=== PATIENT | male | born 1955 | race American Indian/Alaskan Native ===

== ENCOUNTER 2019-10-30 10:26 | Day surgery (SDC) | payer OTHER ==
[2019-10-30] MEDS ORDERED: ceFAZolin/STERILE WATER 2 GM/20 ML SYRINGE IV NR (12:00)
[2019-10-30] MEDS ORDERED: HEPARIN 5,000 UNIT/1 ML VIAL SUB-Q NR (12:00)
[2019-10-30] MEDS ORDERED: fentaNYL 100 MCG/2 ML INJ IV PRN (12:06)
--- NOTE | 2019-10-30 12:06 | Anesthesia Consultation ---
Anesthesia Consult and Med Hx Date of service: 10/30/19 - Airway Anesthetic Teeth Evaluation: Partials ROM Head & Neck: Inadequate (hx cervical fusion) Mental/Hyoid Distance: Adequate Mallampati Class: Class III Intubation Access Assessment: Possibly Difficult - Pulmonary Exam CTA: Yes - Cardiac Exam Cardiac Exam: RRR - Pre-Operative Health Status ASA Pre-Surgery Classification: ASA2 Proposed Anesthetic Plan: General - Pulmonary Hx Smoking: Yes (QUIT 30 YEARS AGO) Hx Respiratory Symptoms: No - Cardiovascular System Hx Hypertension: Yes Hx Heart Attack/AMI: No - Central Nervous System CVA: No Hx Psychiatric Problems: Yes (depression) - Gastrointestinal Hx Gastroesophageal Reflux Disease: No - Endocrine Hx Renal Disease: No Hx Liver Disease: No Hx Non-Insulin Dependent Diabetes: Yes Hx Thyroid Disease: No - Other Systems Hx Obesity: Yes - Additional Comments Anesthesia Medical History Comments: No hx anesthetic complications.
--- NOTE | 2019-10-30 12:06 | Anesthesia Day of Surgery ---
Anesthesia Day of Surgery - Day of Surgery Patient Examined: Yes Patient H&P Reviewed: Yes Patient is NPO: Yes
[2019-10-30] MEDS ORDERED: LACTATED RINGERS 1,000 ML IV SCH (13:00)
[2019-10-30] MEDS ORDERED: CELECOXIB 200 MG CAP PO NR (13:00)
[2019-10-30] MEDS ORDERED: MIDAZOLAM 2 MG/2 ML INJ IV NR (13:00)
[2019-10-30] MEDS ORDERED: GABAPENTIN 300 MG CAP PO NR (13:00)
[2019-10-30] MEDS ORDERED: LIDOCAINE MPF (2%) 20 MG/1 ML VIAL 5 ML ONE (13:58)
[2019-10-30] MEDS ORDERED: ROCURONIUM 50 MG/5 ML INJ IV ONE (13:58)
[2019-10-30] MEDS ORDERED: PROPOFOL 200 MG/20 ML VIAL IV ONE (13:59)
[2019-10-30] MEDS ORDERED: fentaNYL 100 MCG/2 ML INJ ONE (13:59)
[2019-10-30] MEDS ORDERED: dexAMETHasone 20 MG/5 ML VIAL ONE (14:00)
[2019-10-30] MEDS ORDERED: ONDANSETRON 4 MG/2 ML INJ ONE (14:00)
[2019-10-30] MEDS ORDERED: BUPIVACAINE-EPINEPHRINE/PF 0.5%-1:200,000 (30 ML) VIAL INFILTRATI ONE ×3 (14:37→15:17)
[2019-10-30] MEDS ORDERED: fentaNYL 250 MCG/5 ML INJ ONE (15:12)
--- NOTE | 2019-10-30 15:59 | Procedure Note ---
Date of procedure: 10/30/19 Pre-op diagnosis: Incarcerated ventral hernia Post-op diagnosis: same Procedure: Open repair of ventral hernia with mesh Description of procedure: Pt was placed supine on the OR table. GETA was administered. Abdomen was prepped and draped. Skin at the incision site was infiltrated with 5 ml of 0.5% Marcaine with epinephrine. Skin was incised over the hernia. Hernia sac was immediately identified and the sac was dissected down to it's fascial margins. Hernia sac was incised and was found to contain incarcerated omentum. Omentum was freed from the hernia sac and was returned to the peritoneal cavity. A medium piece of Ventralex mesh was then placed intraperitoneally. The mesh was secured to the abdominal fascia and the fascial defect simultaneously closed with interrupted sutures of 0-Ethibond. Skin was approximated with a running subcuticular suture of 4-0 Monocryl. Skin glue was applied. Pt tolerated the procedure well. Pt was extubated in the OR and was taken to PACU in stable condition. Anesthesia: GETA Surgeon: GEETA SMITH Estimated blood loss: minimal Pathology: none Specimen disposition: discarded Condition: stable Disposition: PACU
[2019-10-30] MEDS ORDERED: GLYCOPYRROLATE 0.4 MG/2 ML INJ ONE (16:02)
[2019-10-30] MEDS ORDERED: NEOSTIGMINE 10MG/10 ML INJ MDV ONE (16:02)
[2019-10-30] MEDS ORDERED: oxyCODONE /ACETAMINOPHEN 5-325MG TAB PO PRN (16:17)
[2019-10-30] MEDS ORDERED: ALBUTEROL 2.5 MG/3 ML NEBU IH ONE ×2 (16:54→16:55)
--- NOTE | 2019-10-30 17:52 | Post Anesthesia Evaluation ---
- Post Anesthesia Evaluation Patient Participated: Yes Airway Patent: Yes Stable Respiratory Function: Yes Nausea/Vomiting: No Temp > 96.8F: Yes Pain Manageable: Yes Adequeate Hydration: Yes Anesthesia Complications: No Other Comments: O2 sat improved with albuterol neb
[2019-10-30 18:06] VITALS: BP 135/51
== END 2019-10-30 10:27 | disposition home or self-care (01) ==
LOC: OR 10:26
PROVIDERS: ATTEND Surgery
DX: K43.6 Other and unspecified ventral hernia with obstruction, without gangrene (principal); I10 Essential (primary) hypertension; F32.9 Major depressive disorder, single episode, unspecified; E11.9 Type 2 diabetes mellitus without complications; K21.9 Gastro-esophageal reflux disease without esophagitis; E78.00 Pure hypercholesterolemia, unspecified; E66.9 Obesity, unspecified; M19.90 Unspecified osteoarthritis, unspecified site; Z87.891 Personal history of nicotine dependence; Z79.899 Other long term (current) drug therapy; Z98.890 Other specified postprocedural states; Z68.33 Body mass index [BMI] 33.0-33.9, adult; Z80.2 Family history of malignant neoplasm of other respiratory and intrathoracic organs
CPT/HCPCS: 49561; 49568; 82962; C1781; J1100; J1644; J2250; J2405; J2704; J2710; J3010; J7120